=== PATIENT | male | born 1990 | race Two or more races ===

== ENCOUNTER 2025-05-17 18:37 | Emergency (ER) | payer OTHER ==
[~2025-05-17] VITALS: Ht 203.2 cm; Wt 104.3 kg
[2025-05-17 18:47] VITALS: BP 128/86; O2SAT 99
[2025-05-17] MEDS ORDERED: 0.9 % SODIUM CHLORIDE 1,000 ML IV ONE (19:15)
[2025-05-17] MEDS ORDERED: FAMOTIDINE/PF 20 MG/2 ML VIAL IV ONE (19:15)
[2025-05-17 20:32] LABS: BASO % 0.6 % (0.1-1.2); EOS # 0.04 (0.04-0.54); EOS % 0.3 % (0.7-7.0); LYMPH # 1.62 (1.18-3.74); LYMPH % 12.9 % (19.3-53.1); MEAN PLATELET VOLUME 10.00 fl (9.4-12.4); MONO # 0.72 (0.24-0.82); MONO % 5.8 % (4.7-12.5); NEUT # 9.87 (1.56-6.13); NEUT % 78.9 % (34.0-71.1); RED CELL DISTRIBUTION WIDTH 11.9 % (11.6-14.4)
[2025-05-17 20:59] LABS: INR 1.04
[2025-05-17 21:02] LABS: D DIMER < 0.19 MG/L
[2025-05-17 21:09] LABS: ALT/SGPT 125.0 U/L (12-78); AST/SGOT 75.0 U/L (15-37); BILIRUBIN TOTAL 0.39 mg/dL (0.3-1.2); BUN CREA RATIO 12.0 (7.0-25.0); CREATININE SERUM 0.84 mg/dL (0.70-1.30); GFR 103.98; GLOBULINA 3.6 G/DL (2.4-3.5); GLUCOSE FASTING 116.0 mg/dL (65-100); OSMOLALITY SERUM 287.0 MOSM/KG (275-295)
[2025-05-17 22:02] LABS: URINE APPEARANCE Clear; URINE BILIRRUBIN Negative (NEGATIVE); URINE BLOOD Negative; URINE COLOR Yellow; URINE GLUCOSE Negative (NEGATIVE); URINE KETONE Negative (NEGATIVE); URINE LEUKOCYTE Negative; URINE NITRATE Negative; URINE PROTEIN Negative (NEGATIVE); URINE UROBILINOGEN 0.2 E.U./dl
[2025-05-17 22:15] LABS: URINE BACTERIA 3.4 uL (0.0-1933); URINE CAST 0.00 uL (0.0-1.40); URINE EPITHELIAL CELLS 0.0 uL (0.0-38.8); URINE RBC 0.0 uL (0.0-20.8); URINE WBC 0.1 uL (0.0-23.2)
== END 2025-05-18 00:43 ==
LOC: ER 18:37
PROVIDERS: Internal Medicine; Student in an Organized Health Care Education/Training Program
DX: F41.8 Other specified anxiety disorders (principal); E86.0 Dehydration; R53.81 Other malaise; Z91.018 Allergy to other foods; F41.0 Panic disorder [episodic paroxysmal anxiety]